=== PATIENT | female | born 1960 | race Two or more races ===

== ENCOUNTER 2021-09-29 08:43 | Emergency (ER) | payer OTHER ==
[2021-09-29 08:51] VITALS: BP 132/75; PULSE 89; RESP 17; TEMP 97.7; BMI 23.6
== END 2021-09-29 10:17 | disposition home or self-care (01) ==
LOC: JERFT 08:43 → JER 08:43 → JERFT 10:17
DX: M17.0 Bilateral primary osteoarthritis of knee (principal)
CPT/HCPCS: 73562-TC-LT-FY; 73562-TC-RT-FY; 99284-25

== ENCOUNTER 2021-12-16 20:59 | Emergency (ER) | payer OTHER ==
[2021-12-16 21:16] VITALS: BP 164/88; PULSE 74; RESP 16; TEMP 98; BMI 23.6
[2021-12-16] MEDS ORDERED: KETOROLAC TROMETHAMINE 30 MG/1 ML VIAL IVPUSH ONE (21:31)
[2021-12-16] MEDS ORDERED: MECLIZINE HCL 25 MG TABLET (FP) PO ONE (21:31)
[2021-12-16] MEDS ORDERED: ONDANSETRON 4 MG/2 ML VIAL IVPB ONE (21:31)
[2021-12-16] MEDS ORDERED: SODIUM CHLORIDE 0.9% 500 ML INFUS.BAG IV ONE (21:31)
[2021-12-16] MEDS ORDERED: KETOROLAC TROMETHAMINE 30 MG/1 ML VIAL ONE (21:33)
[2021-12-16] MEDS ORDERED: MECLIZINE HCL 25 MG TABLET (FP) ONE (21:33)
[2021-12-16] MEDS ORDERED: ONDANSETRON 4 MG/2 ML VIAL ONE (21:34)
[2021-12-16 22:04] LABS: ALBUMIN 4.1 g/dl (3.4-5.0); BILIRUBIN,TOTAL 0.3 mg/dl (0.2-1); CALCIUM 8.7 mg/dl (8.5-10); CREATININE 0.7 mg/dl (0.55-1.3); HEMATOCRIT 35.5 % (32.4-45.2); HEMOGLOBIN 12.4 G/dL (10.7-15.3); MAGNESIUM 1.8 mg/dL (1.8-2.4); MCH 31.7 pg (25.7-33.7); MCHC 34.8 g/dl (32.0-36.0); MEAN PLT VOLUME 8.8 fl (7.5-11.1); PLATELET COUNT 261.7 10^3/uL (134-434); RDW 13.1 % (11.6-15.6); TOT PROT 6.9 g/dl (6.4-8.2); WHITE BLOOD COUNT 6.2 10^3/uL (4.0-10.8)
[2021-12-16] MEDS ORDERED: POTASSIUM CHLORIDE TABS 20 MEQ TABLET.ER (FP) PO ONE ×2 (22:13→22:21)
[2021-12-16] MEDS ORDERED: METHOCARBAMOL 500 MG TABLET PO ONE (22:26)
[2021-12-16] MEDS ORDERED: ACETAMINOPHEN 1000 MG/100 ML BAG IVPB ONE (22:26)
[2021-12-16] MEDS ORDERED: ACETAMINOPHEN INJECTION 100 ML IVPB ONE (22:29)
[2021-12-16] MEDS ORDERED: METHOCARBAMOL 500 MG TABLET ONE (22:29)
[2021-12-16] MEDS ORDERED: LORazepam 0.5 MG TABLET PO ONE (22:46)
[2021-12-16] MEDS ORDERED: LORazepam 0.5 MG TABLET ONE (22:48)
== END 2021-12-16 23:15 | disposition home or self-care (01) ==
LOC: FER 20:59
PROC: 3E0333Z Introduction of Anti-inflammatory into Peripheral Vein, Percutaneous Approach (ICD-10-PCS; principal; 2021-12-16)
PROC: 3E0333Z Introduction of Anti-inflammatory into Peripheral Vein, Percutaneous Approach (ICD-10-PCS; 2021-12-16)
PROC: 3E033GC Introduction of Other Therapeutic Substance into Peripheral Vein, Percutaneous Approach (ICD-10-PCS; 2021-12-16)
DX: R42 Dizziness and giddiness (principal)
CPT/HCPCS: 36415; 80053; 83735; 84100; 84484; 85027; 93005; 96374; 96375; 99284-25